=== PATIENT | female | born 1960 | race Caucasian/White ===

== ENCOUNTER → 2021-03-29 | Outpatient (CLI) | payer OTHER | LOC: MAMO 10:00 | DX: Z12.31 Encounter for screening mammogram for malignant neoplasm of breast (principal) | CPT/HCPCS: 77063; 77067 ==

== ENCOUNTER → 2021-08-22 | Outpatient (CLI) | payer OTHER | LOC: EXRD 11:15 | DX: M81.0 Age-related osteoporosis without current pathological fracture (principal); M85.89 Other specified disorders of bone density and structure, multiple sites | CPT/HCPCS: 77080 ==

== ENCOUNTER → 2021-09-02 | Outpatient (CLI) | payer OTHER | LOC: KOH-I 12:42 | DX: F17.210 Nicotine dependence, cigarettes, uncomplicated (principal); E04.1 Nontoxic single thyroid nodule | CPT/HCPCS: 71271 ==

== ENCOUNTER → 2021-09-09 | Outpatient (CLI) | payer OTHER | LOC: EXRD 12:52 | DX: E04.1 Nontoxic single thyroid nodule (principal) | CPT/HCPCS: 76536 ==

== ENCOUNTER → 2022-02-08 | Outpatient (CLI) | payer OTHER | LOC: MRI 10:44 | DX: M54.2 Cervicalgia (principal); M47.812 Spondylosis without myelopathy or radiculopathy, cervical region; M48.062 Spinal stenosis, lumbar region with neurogenic claudication | CPT/HCPCS: 72141 ==

== ENCOUNTER → 2022-04-24 | Outpatient (CLI) | payer OTHER | LOC: MAMO 09:00 | DX: Z12.31 Encounter for screening mammogram for malignant neoplasm of breast (principal); E04.1 Nontoxic single thyroid nodule | CPT/HCPCS: 76536; 77063; 77067 ==